=== PATIENT | female | born 1990 | race Caucasian/White ===

== ENCOUNTER 2018-05-05 17:50 | Emergency (ER) | payer OTHER ==
[~2018-05-05] VITALS: Ht 167.6 cm; Wt 67.1 kg
[2018-05-05 18:32] VITALS: Ht 167.6 cm; Wt 67.1 kg
[2018-05-05 19:16] LABS: UA SPECIFIC GRAVITY >=1.030 (1.005-1.035); microscopic required? YES; urine erythrocyte 1+ (NEGATIVE)
[2018-05-05 19:25] LABS: AMPHETAMINE QUAL UR NONE DETECTED (See below)
[2018-05-05 22:26] VITALS: BP 103/61
== END 2018-05-05 22:26 | disposition home or self-care (01) ==
LOC: ED 17:50
PROVIDERS: Emergency Medicine
DX: R30.0 Dysuria (principal)